=== PATIENT | male | born 1955 | race Caucasian/White ===

== ENCOUNTER 2019-10-23 16:00 | Inpatient (IN) | payer MEDICARE ==
--- OUTSIDE RECORDS SUMMARY | 2019-10-23 16:17 | XMS REPORT | Continuity of Care Document ---
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 Medicine Problems Active Problems Provider Date Chronic obstructive lung disease Sy Mims MD Onset: 08/27/2019 Uncomplicated moderate persistent asthma Sy Mims MD Onset: 09/2019 Allergic rhinitis Sy Mims MD Onset: 08/27/2019 Allergic rhinitis due to pollen Sy Mmis MD Onset: 08/27/2019 Social History Type Date Description Comments Sex Unknown Tobacco Use Start: Unknown Light tobacco smoker (10 or fewer cigarettes/day) Smoking Status Reviewed: 08/27/19 Light tobacco smoker (10 or fewer cigarettes/day) Tobacco Use Start: Unknown Patient is a current smoker, smokes every day Allergies, Adverse Reactions, Alerts Description No Known Drug Allergies Medications Active Medications SIG Qnty Indications Ordering Provider Date Flonase Allergy 2 puffs each 9.900ml J30.1 Sy Merrill 08/27/2019 Relief nostril every MD Prasanna 50mcg/Act day Suspension Zyrtec Allergy one tablet by 30tabs J30.1 Sy Merrill 08/27/2019 10mg mouth every day MD Prasanna Tablets as needed Albuterol Sulfate Mihir Portilloomir HFA MD Abigail 108(90Base) mcg/Act Aerosol Breo Ellipta Unknown 100-25mcg/Inh Aerosol Ibuprofen Lindsey Radomir 800mg MD Abigail Tablets Incruse Ellipta Unknown 62.5mcg/Inh Aerosol Albuterol Sulfate Gurdeep Zamora, RISK MANAGER (2.5mg/3ML) 0.083% Nebulizer Immunizations Description No Information Available Vital Signs Date Vital Result Comment 08/27/2019 11:14am BP Systolic 129 mmHg BP Diastolic 79 mmHg Height 70 inches 5'10" Weight 180.12 lb BMI (Body Mass Index) 25.8 kg/m2 Heart Rate 68 /min Respiratory Rate 19 /min Body Temperature 97.6 F O2 % BldC Oximetry 93 % Results Test Date Facility Test Result H/L Range Note .CBC Auto Diff 08/27/2019 [facility] <pending> [address] [facility] [place] [address] [phone] Laboratory test 08/27/2019 [facility] Total <pending> finding [address] [place] [address] [phone] Order 08/27/2019 [facility] Nitric Oxide <pending> PFT Supplies <pending> PFT With Bronchodilator <pending> Blood Collection via Venipuncture <pending> Skin Test Seasonal and Environmental <pending> Procedures Date Code Description Status 08/27/2019 03641 Nitric Oxide Gas Determination Completed 08/27/2019 42453 Allergy Tests Percutaneous W/ Allergenic Extracts Completed 08/27/2019 82656 Bronchodilation Responsiveness Spirometry Pre/Post Completed Bronchodil Adm Medical Devices Description No Information Available Encounters Description No Information Available Assessments Date Code Description Provider 08/27/2019 J30.1 Allergic rhinitis due to pollen Sy Mims MD 08/27/2019 J30.89 Other allergic rhinitis Sy Mims MD 08/27/2019 J45.40 Moderate persistent asthma, uncomplicated Sy Mims MD 08/27/2019 J44.9 Chronic obstructive pulmonary disease, Sy Mims MD unspecified Plan of Treatment 08/27/2019 - Sy Mims MDJ30.1 Allergic rhinitis due to pollenNew Medication:Flonase Allergy Relief 50 mcg/Act - 2 puffs each nostril every dayZyrtec Allergy 10 mg - one tablet by mouth every day as twslolV09.89 Other allergic xvffhiheN78.40 Moderate persistent asthma, wuncvqhsrzhxsD45.9 Chronic obstructive pulmonary disease, unspecified Functional Status Description No Information Available Mental Status Description No Information Available Referrals Description No Information Available
--- OUTSIDE RECORDS SUMMARY | 2019-10-23 16:17 | XMS REPORT | Continuity of Care Document ---
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 Medicine Problems Active Problems Provider Date Uncomplicated severe persistent asthma Merlene Coe NP Onset: 09/17/2019 Chronic obstructive lung disease Sy Mims MD Onset: 08/27/2019 Uncomplicated moderate persistent asthma Sy Mims MD Onset: 09/2019 Allergic rhinitis Sy Mims MD Onset: 08/27/2019 Allergic rhinitis due to pollen Sy Mims MD Onset: 08/27/2019 Social History Type Date [...] Zyrtec Allergy one tablet by 30tabs J30.1 Merlene Coe NP 08/27/2019 10mg mouth every day Tablets as needed Albuterol Sulfate Mihir Portilloomberyl HFEusebio Hayes MD 108(90Base) mcg/Act Aerosol Breo Ellipta Unknown 100-25mcg/Inh Aerosol Ibuprofen Lindsey Radomberyl 800mg MD Abigail Tablets Incruse Ellipta Unknown 62.5mcg/Inh Aerosol Albuterol Sulfate Gurdeep Zamora, DONOR RECRUITMENT MANAGER (2.5mg/3ML) 0.083% Nebulizer Immunizations Description No Information Available Vital Signs Date Vital Result Comment 09/17/2019 1:09pm BP Systolic 135 mmHg BP Diastolic 88 mmHg Height 70 inches 5'10" Weight 180.00 lb BMI (Body Mass Index) 25.8 kg/m2 Heart Rate 65 /min Respiratory Rate 20 /min O2 % BldC Oximetry 98 % 08/27/2019 11:14am BP Systolic 129 mmHg BP Diastolic 79 mmHg Height 70 inches 5'10" Weight 180.12 lb BMI (Body Mass Index) 25.8 kg/m2 Heart Rate 68 /min Respiratory Rate 19 /min Body Temperature 97.6 F O2 % BldC Oximetry 93 % Results Description No Information Available Procedures Date Code Description Status 08/27/2019 81578 Nitric Oxide Gas Determination Completed 08/27/2019 99680 Allergy Tests Percutaneous W/ Allergenic Extracts Completed 08/27/2019 35835 Bronchodilation Responsiveness Spirometry Pre/Post Completed Bronchodil Adm Medical Devices Description No Information Available Encounters Type Date Location Provider Dx Diagnosis Office Visit 09/17/2019 Greg Coe NP J44.9 Chronic obstructive 1:00p pulmonary disease, unspecified J45.50 Severe persistent asthma, uncomplicated J30.1 Allergic rhinitis due to pollen Office Visit 08/27/2019 11:00a Greg Mims J30.1 Allergic rhinitis due to pollen J30.89 Other allergic rhinitis J45.40 Moderate persistent asthma, uncomplicated J44.9 Chronic obstructive pulmonary disease, unspecified Assessments Date Code Description Provider 09/17/2019 J44.9 Chronic obstructive pulmonary disease, Merlene Coe NP unspecified 09/17/2019 J45.50 Severe persistent asthma, uncomplicated Merlene Coe NP 09/17/2019 J30.1 Allergic rhinitis due to pollen Merlene Coe NP 08/27/2019 J30.1 Allergic rhinitis due to pollen Sy Mims MD 08/27/2019 J30.89 Other allergic rhinitis Sy Mims MD 08/27/2019 J45.40 Moderate persistent asthma, uncomplicated Sy Mims MD 08/27/2019 J44.9 Chronic obstructive pulmonary disease, Sy Mims MD unspecified Plan of Treatment Future Appointment(s):03/17/2020 3:30 pm - Merlene Coe NP at [id number] - Merlene Coe NPJ44.9 Chronic obstructive pulmonary disease, unspecifiedComments:Patient presents for discussion of skin testing for seasonal allergies. All positives were discussed. Avoidance reviewed, and patient is considering immunotherapy. Patient is a good candidate for biologic but he needs to think about it. He would like to start immunotherapy and he will call if he decides to start immunotherapy. He wants to check and see he can have the allergy shots at his PCP.IgE 1584, eosinophil level 170. Follow up in six months. Greater than 50% of the 25-minute visit was spent in discussion of the testing results and treatment options.J45.50 Severe persistent asthma, kdsgrrdodmhqsE88.1 Allergic rhinitis due to pollen Functional Status Description No Information Available Mental Status Description No Information Available Referrals Description No Information Available
--- OUTSIDE RECORDS SUMMARY | 2019-10-23 16:17 | XMS REPORT | Continuity of Care Document ---
:1955 External Reference #:[id number] Author Name RONALD Wilcox (transmitted by agent of provider Sy Mims) Address [address] [facility] 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 [phone] Medicine Problems Active Problems Provider Date Uncomplicated [...] (10 or fewer cigarettes/day) Smoking Status Reviewed: 10/06/19 Light tobacco smoker (10 or fewer cigarettes/day) Tobacco Use Start: Unknown Patient is a current smoker, smokes every day Allergies, Adverse Reactions, Alerts Description No Known Drug Allergies Medications Active Medications SIG Qnty Indications Ordering Provider Date Flonase Allergy 2 puffs each 9.900ml J30.1 Adonayopher Garfield 08/27/2019 Relief nostril every MD Prasanna 50mcg/Act day Suspension Zyrtec Allergy one tablet by 30tabs J30.1 Merlene Coe NP 08/27/2019 10mg mouth every day Tablets as needed Albuterol Sulfate 8.500gm Sy Kaplan. HFA MD Prasanna 108(90Base) mcg/Act Aerosol Breo Ellipta Unknown 100-25mcg/Inh Aerosol Ibuprofen Fide Portillo 800mg MD Abigail Tablets Incruse Ellipta Unknown 62.5mcg/Inh Aerosol Albuterol Sulfate Gurdeep Zamora, JAVA FLEX DEVELOPER (2.5mg/3ML) 0.083% Nebulizer Immunizations Description No Information Available Vital Signs Date Vital Result Comment 10/06/2019 12:56pm BP Systolic 128 mmHg BP Diastolic 78 mmHg Height 70 inches 5'10" Weight 180.00 lb BMI (Body Mass Index) 25.8 kg/m2 Heart Rate 66 /min Respiratory Rate 18 /min O2 % BldC Oximetry 93 % 09/17/2019 1:09pm BP Systolic 135 mmHg BP Diastolic 88 mmHg Height 70 inches 5'10" Weight 180.00 lb BMI (Body Mass Index) 25.8 kg/m2 Heart Rate 65 /min Respiratory Rate 20 /min O2 % BldC Oximetry 98 % Results Description No Information Available Procedures Date Code Description Status 08/27/2019 80420 Nitric Oxide Gas Determination Completed 08/27/2019 27071 Allergy Tests Percutaneous W/ Allergenic Extracts Completed 08/27/2019 93988 Bronchodilation Responsiveness Spirometry Pre/Post Completed Bronchodil Adm Medical Devices Description No Information Available Encounters Type Date Location Provider Dx Diagnosis Office Visit 10/06/2019 1:30p RONALD Zhou J44.9 Chronic obstructive pulmonary disease, unspecified J45.50 Severe persistent asthma, uncomplicated J30.1 Allergic rhinitis due to pollen J30.89 Other allergic rhinitis Office Visit 09/17/2019 1:00p Greg Coe NP J44.9 Chronic obstructive pulmonary disease, unspecified J45.50 Severe persistent asthma, uncomplicated J30.1 Allergic rhinitis due to pollen Office Visit 08/27/2019 11:00a Greg Mims J30.1 Allergic rhinitis due to pollen J30.89 Other allergic rhinitis J45.40 Moderate persistent asthma, uncomplicated J44.9 Chronic obstructive pulmonary disease, unspecified Assessments Date Code Description Provider 10/06/2019 J44.9 Chronic obstructive pulmonary disease, RONALD Wilcox unspecified 10/06/2019 J45.50 Severe persistent asthma, uncomplicated RONALD Wilcox 10/06/2019 J30.1 Allergic rhinitis due to pollen RONALD Wilcox 10/06/2019 J30.89 Other allergic rhinitis RONALD Wilcox 09/17/2019 J44.9 Chronic obstructive pulmonary disease, Merlene Coe, MELECIO unspecified 09/17/2019 J45.50 Severe persistent asthma, uncomplicated Merlene Coe NP 09/17/2019 J30.1 Allergic rhinitis due to pollen Merlene Coe NP 08/27/2019 J30.1 Allergic rhinitis due to pollen Sy Mims MD 08/27/2019 J30.89 Other allergic rhinitis Sy Mims MD 08/27/2019 J45.40 Moderate persistent asthma, uncomplicated Sy Mims MD 08/27/2019 J44.9 Chronic obstructive pulmonary disease, Sy Mims MD unspecified Plan of Treatment Future Appointment(s):10/13/2019 9:20 am - Injection 1 at [facility]/17/2020 3: 30 pm - Merlene Coe MATTE CUTTER at [facility]/06/2019 - RONALD WilcoxJ44.9 Chronic obstructive pulmonary disease, pplyprbfpnpY03.50 Severe persistent asthma, tmtsmzbxfqbjeH12.1 Allergic rhinitis due to pollenComments:Patient's environmental skin test showed 2+ positive to all allergens tested. Patient's PFT shows severe obstruction. Patient to continue Breo for prophylaxis of his lungs and albuterol for breakthrough chest symptoms. Patient to use nebulizer every 4 hours as needed. Patient to continue Flonase for prophylaxis of his nose and Zyrtec for breakthrough nasal symptoms. Patient is interested in starting allergen immunotherapy injections at this time. Saline nasal rinse and HEPA air filter may helpdecrease allergens. Patient strongly encouraged to try to stop smoking cigarettes.Follow up:6 months, PFT and NIOXJ30.89 Other allergic rhinitis Functional Status Description No Information Available Mental Status Description No Information Available Referrals Description No Information Available
--- OUTSIDE RECORDS SUMMARY | 2019-10-23 16:18 | XMS REPORT | Continuity of Care Document ---
:1955 External Reference #:[id number] Author Name Sy Mims MD (transmitted by agent of provider Maryann Flynn) Address [address] [facility] [address] [place] [id number] Care Team Providers Name Role Phone Fide Portillo MD - Internal Care Team Information Tape Sewer [phone] Medicine Problems Description No Information Available Social History Type Date Description Comments Sex Unknown Tobacco Use Start: Unknown Light tobacco smoker (10 or fewer cigarettes/day) Tobacco Use Start: Unknown Patient is a current smoker, smokes every day Allergies, Adverse Reactions, Alerts Description No Known Drug Allergies Medications Active Medications SIG Qnty Indications Ordering Provider Date Albuterol Sulfate HFA Fide Portillo MD 108(90Base) mcg/Act Aerosol Breo Ellipta Unknown 100-25mcg/Inh Aerosol Ibuprofen Fide Portillo MD 800mg Tablets Incruse Ellipta Unknown 62.5mcg/Inh Aerosol Albuterol Sulfate Gurdeep Zamora FNP (2.5mg/3ML) 0.083% Nebulizer Immunizations Description No Information Available Vital Signs Date Vital Result Comment 08/27/2019 11:14am BP Systolic 129 mmHg BP Diastolic 79 mmHg Height 70 inches 5'10" Weight 180.12 lb BMI (Body Mass Index) 25.8 kg/m2 Heart Rate 68 /min Respiratory Rate 19 /min Body Temperature 97.6 F O2 % BldC Oximetry 93 % Results Description No Information Available Procedures Description No Information Available Medical Devices Description No Information Available Encounters Description No Information Available Assessments Description No Information Available Plan of Treatment No Information Available Functional Status Description No Information Available Mental Status Description No Information Available Referrals Description No Information Available
[2019-10-23] MEDS ORDERED: methylPREDNISolone 125 MG* 2 ML VIAL IV ONE (17:52)
[2019-10-23] MEDS ORDERED: Albuterol/Ipratropium NEB.SOL* Albuterol 2.5 MG/Ipratropium 0.5 MG 3 ML INH ONE ×3 (17:52→19:47)
[2019-10-23] MEDS ORDERED: Magnesium Sulfate 2 GM IV* 2 GM/50 ML BAG IVPB ONE (17:52)
--- NOTE | 2019-10-23 18:08 | ED ---
Shortness of Breath - HPI Summary HPI Summary: 64-year-old male presents with shortness of breath for the past week. He states he has history of COPD but it has never been this bad. Has had a productive cough. He admits to occasional chest pain when he coughs. He also bowel pain with coughing. No vomiting. No fevers. Has a history of CHF. He is not diabetic. He states that he normally only uses oxygen occasionally at night but has been having 2 L consistently. He states he does have sleep apnea. he is speaking in short sentences. - History of Current Complaint Chief Complaint: EDShortnessOfBreath Time Seen by Provider: 10/23/19 17:43 - Allergy/Home Medications Allergies/Adverse Reactions: Allergies Allergy/AdvReac Type Severity Reaction Status Date / Time No Known Allergies Allergy Verified 10/23/19 16:07 Home Medications: Home Medications Fluticasone/Vilanterol MDI(NF) [Breo Ellipta MDI 100/25(NF)] 1 puff INH DAILY [History Confirmed 10/23/19] Roflumilast [Daliresp] 250 mg PO DAILY 10/23/19 [History Confirmed 10/23/19] Umeclidinium [place] [Incruse Ellipta] 1 puff INH DAILY 10/23/19 [History Confirmed 10/23/19] PMH/Surg Hx/FS Hx/Imm Hx Endocrine/Hematology History: Reports: Other Endocrine/Hematological Disorders - nontoxic goiter Denies: Hx Diabetes Cardiovascular History: Reports: Hx Hypercholesterolemia, Hx Peripheral Vascular Disease Denies: Hx Congestive Heart Failure, Hx Hypertension, Hx Pacemaker/ICD, Other Cardiovascular Problems/Disorders Respiratory History: Reports: Hx Asthma, Hx Chronic Obstructive Pulmonary Disease (COPD), Hx Seasonal Allergies History: Denies: Hx Renal Disease Musculoskeletal History: Reports: Hx Arthritis, Other Musculoskeletal History - neck pain Sensory History: Reports: Other Sensory Impairments - dentures Denies: Hx Hearing Aid Opthamlomology History: Reports: Other Sensory Impairments - dentures Neurological History: Reports: Other Neuro Impairments/Disorders - pain clinic patient, cervical stenosis Psychiatric History: Reports: Hx Depression Denies: Hx Panic Disorder - Surgical History Surgery Procedure, Year, and Place: HERNIA REPAIR AGE 12 Infectious Disease History: No Infectious Disease History: Denies: Traveled Outside the [place] in Last 30 Days - Family History Known Family History: Positive: Non-Contributory - Social History Alcohol Use: None Substance Use Type: Reports: None Hx Tobacco Use: Yes Smoking Status (MU): Heavy Every Day Tobacco Smoker Type: Cigarettes Amount Used/How Often: 1/2 PPD Have You Smoked in the Last Year: Yes Review of Systems Negative: Fever Negative: Chest Pain Positive: Shortness Of Breath, Cough Negative: Vomiting All Other Systems Reviewed And Are Negative: Yes Physical Exam Triage Information Reviewed: Yes Vital Signs On Initial Exam: Initial Vitals Temp Pulse Resp BP Pulse Ox 97.9 F 103 20 173/98 94 10/23/19 16:02 10/23/19 16:02 10/23/19 16:02 10/23/19 16:02 10/23/19 16:02 Vital Signs Reviewed: Yes Appearance: Positive: Well-Appearing Skin: Positive: Warm, Dry Head/Face: Positive: Normal Head/Face Inspection Eyes: Positive: Normal, Conjunctiva Clear ENT: Positive: Pharynx normal Respiratory/Lung Sounds: Positive: Decreased Breath Sounds, Wheezes Cardiovascular: Positive: Normal, RRR Abdomen Description: Positive: Nontender, Soft Bowel Sounds: Positive: Present Musculoskeletal: Positive: Normal Neurological: Positive: Normal Psychiatric: Positive: Normal Procedures - Sedation Patient Received Moderate/Deep Sedation with Procedure: No Diagnostics - Vital Signs Vital Signs Temp Pulse Resp BP Pulse Ox 10/23/19 18:01 110 22 95 10/23/19 16:02 97.9 F 103 20 173/98 94 - Laboratory Result Diagrams: 10/24/19 05:50 10/24/19 05:50 Lab Statement: Any lab studies that have been ordered have been reviewed, and results considered in the medical decision making process. - Radiology chest Radiology Interpretation Completed By: ED Physician Summary of Radiographic Findings: possible infilitrate - CT cta CT Interpretation Completed By: Radiologist Summary of CT Findings: IMPRESSION: No evidence of PE. Scattered foci of infiltrate in the upper lobes suggestive of pneumonitis. - EKG No standard instances Cardiac Rate: Tachycardia EKG Rhythm: Sinus Tachycardia Summary of EKG Findings: sinus tachycardia Re-Evaluation - Re-Evaluation First Eval Re-Evaluation Time: 19:23 Change: Unchanged Comment: still wheezing and SOB Course/Dx - Course Course Of Treatment: 64-year-old male presents with shortness of breath for the past week. He states he has history of COPD but it has never been this bad. Has had a productive cough. He admits to occasional chest pain when he coughs. He also bowel pain with coughing. No vomiting. No fevers. Has a history of CHF. He is not diabetic. He states that he normally only uses oxygen occasionally at night but has been having 2 L consistently. He states he does have sleep apnea. On exam decreased breath sounds with wheezing heard. chest xray shows possible infilitrate. wbc 12. crp elevated. bnp is normal. troponin .03. d-dimer elevated. gave solumedrol, steriod and nebulier and patient continues to be sob and has wheezes on exam. CTA shows possible pneumonitis so will treat with rocephin and azithromycin. patient continues to be sob and speaks in short sentences so will admit. dr swenson agrees to admit. - Diagnoses Differential Diagnosis/HQI/PQRI: Positive: Bronchitis, COPD Exacerbation, Pneumonia Provider Diagnoses: COPD (chronic obstructive pulmonary disease), Pneumonia Discharge ED - Sign-Out/Discharge Documenting (check all that apply): Patient Departure - Discharge Plan Condition: Stable Disposition: ADMITTED TO [facility] - Billing Disposition and Condition Condition: STABLE Disposition: Admitted to [facility] - Attestation Statements Provider Attestation: I was available for consultation for this patient. I did not evaluate the patient, or participate in any medical decision making or disposition decisions unless I am specifically named in the chart as having consulted on the patient. If I have consulted on the patient, please see my own ED note on the patient encounter. Brady Nixon MD
[2019-10-23 18:10] LABS: ABS Basophils 0.1 10^3/ul (0-0.2); ABS Eosinophils 0.1 10^3/ul (0-0.6); ABS Lymphocytes 1.4 10^3/ul (1.0-4.8); ABS Monocytes 1.5 10^3/ul (0-0.8); ABS Neutrophils 9.8 10^3/ul (1.5-7.7); Eosinophil % 0.6 %; Hematocrit 38 % (42-52); Hemoglobin 13.4 g/dL (14.0-18.0); Lymphocyte % 11.3 %; Mean Corpuscular HGB Conc 35 g/dL (31-36); Mean Corpuscular Hemoglobin 33 pg (27-31); Mean Corpuscular Volume 94 fL (80-94); Mean Platelet Volume 7.4 fL (7.4-10.4); Platelet Count 285 10^3/uL (150-450); Red Cell Distribution Width 13 % (10-15); White Blood Count 12.9 10^3/uL (3.5-10.8)
[2019-10-23 18:30] LABS: ALT 41 U/L (7-52); AST 32 U/L (13-39); Albumin 3.9 g/dL (3.2-5.2); Albumin/Globulin Ratio 1.3 (1-3); Alkaline Phosphatase 78 U/L (34-104); Anion Gap 8 mmol/L (2-11); BUN/Creatinine Ratio 16.4 (8-20); Blood Urea Nitrogen 11 mg/dL (6-24); C Reactive Protein 220.72 mg/L (<8.01); CO2 Carbon Dioxide 32 mmol/L (22-32); Calcium 9.2 mg/dL (8.6-10.3); Chloride 100 mmol/L (101-111); EGFR African American 145.4 (>60); EGFR Non-African American 120.2 (>60); Globulin 2.9 g/dL (2-4); Glucose 121 mg/dL (70-100); Magnesium 1.8 mg/dL (1.9-2.7); Potassium 3.6 mmol/L (3.5-5.0); Sodium 140 mmol/L (135-145); Total Protein 6.8 g/dL (6.4-8.9)
[2019-10-23 18:36] LABS: Troponin I 0.03 ng/mL (<0.03)
[2019-10-23] MEDS ORDERED: Iohexol 350* (CONTRAST) 500 ML MDV IV ONE (18:54)
[2019-10-23] MEDS ORDERED: Acetaminophen TAB* 325 MG PO ONE (19:46)
[2019-10-23] MEDS ORDERED: cefTRIAXone(*) 1 GM in NS 0.9% 50 ML* 50 ML IVPB ONE (20:25)
[2019-10-23] MEDS ORDERED: Azithromycin 500 mg/250 ml NS 500 MG/250 ML BAG IVPB ONE (20:25)
[2019-10-23 21:12] LABS: Influenza A Molecular NEGATIVE (Negative); Influenza B Molecular NEGATIVE (Negative)
--- NOTE | 2019-10-23 23:48 | HP ---
History of Present Illness - History of Present Illness Reason for Visit: shortness of breath History of Present Illness: 64 yo male with medical history of COPD came in with shortness of breath. His symptoms started the weekend after thanksgiving and has been getting worse. Started with a productive cough then more dyspnea on exertion with chills and decreased energy. His shortness of breath was so bad he came in to the hospital today. He hasnt been in a hospital in years. Pt is an active smoker and smokes .5 PPD. He works in [email or web address] and does not wear protective mask. No recent travel. He wears oxygen at night only. - Past Medical History Pulmonary: Bronchitis, COPD - Past Family History Family History: CAD - Past Social History Smoke: <1 pack per day Alcohol: Rare Drugs: None Lives: Alone Review of Systems - Measurements Intake and Output: Intake and Output Last 24 Hours 10/21/19 10/22/19 10/23/19 10/24/19 06:59 06:59 06:59 06:59 Intake Total 100 Balance 100 Weight 180 lb Intake: IV Fluids 100 - Review of Systems Constitutional Symptoms: Positive: Fever Negative: Weight Gain, Weight Loss, Weakness, Fatigue, Night Sweats, Unexplained Falls, Other Dermatology: Negative: Normal, Rash, Skin Lesions, Cancer, Skin Lumps, Other HEENT: Negative: Normal, Change in Hearing, Vertigo, Dental Problems, Tinnitus, Sinus Problem, Other Thyroid: Negative: Normal, Goiter, Thyroid Nodule, Cold Intolerance, Heat Intolerance , Sweatiness, Tremor, Frequent Defecation, Constipation, Palpitations, Primary Hypothyroidism, Primary Hyperthyroidism, Weight Loss, Weight Gain, Change in Skin/Hair, Change in Menstruation, Radiation Exposure, Other Pulmonary: Positive: Cough, Sputum, Wheezing, Respiratory Distress, Shortness of Breath Cardiology: Negative: Normal, Chest Pain, Shortness of Breath, Palpitations, Swelling of Ankles, Peripheral Vascular Dis, Edema, Faintness, Syncope, Claudication, Proximal NocturnalDyspnea, Orthopnoea, Other Gastroenterology: Negative: Normal, Abdominal Pain, Nausea, Vomiting, Anorexia, Indigestion, Difficulty Swallowing, Heartburn, Constipation, Diarrhea, Blood in Stools, Change in Bowel Habits, Haematemesis, Melena, Other Musculoskeletal: Negative: Joint Pain, Joint Stiffness, Arthritis, Osteoporosis, Low Back Pain , Sciatica, Joint Deformities, Kyphoscoliosis, Other Endocrinology: Negative: Normal, Thyroid Problems, Adrenal Problems, Gonadal Problems, Family Hx Endocrine Disorders, Obesity, Diabetes Mellitus, Hyperglycemia, Hx Hypoglycemia, Diabetic Foot Ulcers, Calluses, Hirsutism, Menstrual Abnormalities , Polydipsia, Polyuria, Gonadal Problems, Gynecomastia, Pituitary disease, Other Hematologic/Lymphatic: Negative: Anemia, Easy Bruising, Hx Leukemia, Hx Lymphoma, Use of Anticoagulant, Use of Antiplatelet Drugs, Other Neurology: Negative: Normal, Headache, Migraines, Change in Vision, Diplopia, Dizziness , Change in Balancing, Change in Coordination, Change in Memory, Change in Speech, Change in Sphincter Function, Change in Walking, Numbness\Paresthesiae, Unexplained Weakness, Hx of Stroke\TIA, Hx of Seizures, Other Psychiatry: Negative: Normal, Depression, Anxiety, Depressed Mood, Anhedonia, Sexual Dysfunction, Weight Change, Guilt Feelings, Tearfulness, Unusual Fatigue, Unusual Anxiety, Suicidal Ideation, Hypomania, Eating Disorders, Other Objective Active Medications: Albuterol (Ventolin 2.5 Mg/3 Ml Neb.Deandra*) 2.5 mg INH Q4H PRN PRN Reason: SOB/WHEEZING Sodium Chloride (Ns 0.9% 1000 Ml) 1,000 mls @ 125 mls/hr IV Q8H [facility] Azithromycin 250 mg/ Sodium (Chloride) 250 mls @ 250 mls/hr IVPB Q24H [facility] Ceftriaxone Sodium 1 gm/ (Sodium Chloride) 50 mls @ 100 mls/hr IVPB Q24H [facility] Mometasone Furoate/Formoterol Fumar (Dulera 100/5 Mdi*) 2 puff INH BID [facility] Non-Formulary Medication (Roflumilast [Daliresp]) 250 mg PO DAILY [facility] Prednisone (Deltasone Tab*) 40 mg PO DAILY [facility] Vital Signs - 8 hr 10/23/19 10/23/19 10/23/19 16:02 17:39 17:40 Temperature 97.9 F Pulse Rate 103 117 124 Respiratory 20 Rate Blood Pressure 173/98 174/105 (mmHg) O2 Sat by Pulse 94 92 93 Oximetry 10/23/19 10/23/19 10/23/19 18:01 18:14 18:39 Temperature Pulse Rate 110 113 103 Respiratory 22 Rate Blood Pressure 178/106 (mmHg) O2 Sat by Pulse 95 93 93 Oximetry 10/23/19 10/23/19 10/23/19 19:00 20:05 20:06 Temperature 98.9 F Pulse Rate 111 Respiratory 31 Rate Blood Pressure 153/91 (mmHg) O2 Sat by Pulse 92 Oximetry 10/23/19 10/23/19 10/23/19 20:09 20:39 21:00 Temperature Pulse Rate 105 104 117 Respiratory Rate Blood Pressure 158/89 154/96 (mmHg) O2 Sat by Pulse 93 96 89 Oximetry 10/23/19 21:09 Temperature Pulse Rate 101 Respiratory Rate Blood Pressure 130/103 (mmHg) O2 Sat by Pulse 95 Oximetry Oxygen Devices in Use Now: Nasal Cannula Appearance: sitting on the side of bed, head down, he breathes better that way Eyes: No Scleral Icterus, PERRLA Ears/Nose/Mouth/Throat: Mucous Membranes Moist Neck: NL Appearance and Movements; NL JVP, Trachea Midline Respiratory: - - mild respiratory distress, scattered wheezes Cardiovascular: NL Sounds; No Murmurs; No JVD Abdominal: NL Sounds; No Tenderness; No Distention Lymphatic: No Cervical Adenopathy Skin: No Rash or Ulcers Neurological: Alert and Oriented x 3, NL Sensation Result Diagrams: 10/23/19 18:02 10/23/19 18:02 Assess/Plan/Problems-Billing Assessment: - Patient Problems (1) COPD exacerbation Current Visit: Yes Status: Acute Code(s): J44.1 - CHRONIC OBSTRUCTIVE PULMONARY DISEASE W (ACUTE) EXACERBATION SNOMED Code(s): 611550008 Comment: shortness of breath at rest, productive cough, chills, wheezing On 2LNC in the ER. Only wears oxygen at night at home CTA r/o PE but shows patchy infiltrates in upper lung [place] B/L concerning for pneumonitis? he certainly has risk factors for ILD and might need further evaluation Will treat for COPD exacerbation with devika/cef and steroids duonebs prn (2) Full code status Current Visit: Yes Status: Acute Code(s): Z78.9 - OTHER SPECIFIED HEALTH STATUS SNOMED Code(s): 673738113 Comment: Son Domenico Francisco to contact in case he becomes incapacited (3) DVT prophylaxis Current Visit: Yes Status: Acute Code(s): Z29.9 - ENCOUNTER FOR PROPHYLACTIC MEASURES, UNSPECIFIED SNOMED Code(s): 728933547 Comment: heparin sc (4) Smoking 1/2 pack a day or less Current Visit: Yes Status: Acute Code(s): F17.210 - NICOTINE DEPENDENCE, CIGARETTES, UNCOMPLICATED SNOMED Code(s): 936208689
[2019-10-24] MEDS: NS 0.9% 1000 ML** 1,000 ML IV SCH ×2 (00:39→10:15)
[2019-10-24] MEDS: Albuterol 2.5 MG/3 ML NEB.SOL* (0.083%) INH PRN ×2 (06:15→13:39)
[2019-10-24 06:19] LABS: ABS Lymphocytes 0.9 10^3/ul (1.0-4.8); ABS Monocytes 0.2 10^3/ul (0-0.8); ABS Neutrophils 8.6 10^3/ul (1.5-7.7); Hematocrit 36 % (42-52); Hemoglobin 12.4 g/dL (14.0-18.0); Lymphocyte % 9.2 %; Mean Corpuscular HGB Conc 35 g/dL (31-36); Mean Corpuscular Hemoglobin 32 pg (27-31); Mean Corpuscular Volume 94 fL (80-94); Mean Platelet Volume 7.5 fL (7.4-10.4); Platelet Count 274 10^3/uL (150-450); Red Blood Count 3.81 10^6 /uL (4.18-5.48); Red Cell Distribution Width 13 % (10-15); White Blood Count 9.8 10^3/uL (3.5-10.8)
[2019-10-24 06:37] LABS: BUN/Creatinine Ratio 22.4 (8-20); Calcium 8.5 mg/dL (8.6-10.3); EGFR African American 171.8 (>60); Potassium 3.6 mmol/L (3.5-5.0)
[2019-10-24 06:39] LABS: Troponin I 0.01 ng/mL (<0.03)
--- NOTE | 2019-10-24 07:42 | PN ---
Subjective Date of Service: 10/24/19 Interval History: Mr. Francisco reports that he is feeling much better than on arrival. He notes that he has had frequent COPD exacerbations, last prednisone about a month ago. This current exacerbation started about a week ago. He came to the hospital yesterday at the behest of his neighbor who noted that he "looked bad." He continues to have a cough and wheezing. He is short of breath with walking in his room. He denies chest pain. He is tolerating oral intake well. Objective Active Medications: Albuterol (Ventolin 2.5 Mg/3 Ml Neb.Deandra*) 2.5 mg INH Q4H PRN Sodium Chloride (Ns 0.9% 1000 Ml) 1,000 mls @ 125 mls/hr IV Q8H [facility] Azithromycin 250 mg/ Sodium (Chloride) 250 mls @ 250 mls/hr IVPB Q24H [facility] Ceftriaxone Sodium 1 gm/ (Sodium Chloride) 50 mls @ 100 mls/hr IVPB Q24H [facility] Influenza Virus Vaccine (Fluarix Quad 6295-2737 Syr) 0.5 ml IM .ONCE ONE Mometasone Furoate/Formoterol Fumar (Dulera 100/5 Mdi*) 2 puff INH BID [facility] Prednisone (Deltasone Tab*) 40 mg PO DAILY [facility] Roflumilast (Daliresp (Nf)) 250 mcg PO DAILY [facility] Vital Signs: Temp Pulse Resp BP Pulse Ox 0 F 0 0 0/0 0 10/23/19 23:50 10/23/19 23:50 10/23/19 23:50 10/23/19 23:50 10/23/19 23:50 Oxygen Devices in Use Now: Nasal Cannula Appearance: Male sitting on edge of bed in NAD Eyes: No Scleral Icterus Ears/Nose/Mouth/Throat: Mucous Membranes Moist Neck: Trachea Midline Respiratory: Symmetrical Chest Expansion and Respiratory Effort, - - Wheezing noted in bases primarily, good aeration, no accessory muscle use, able to speak in complete sentences Cardiovascular: NL Sounds; No Murmurs; No JVD Abdominal: NL Sounds; No Tenderness; No Distention Extremities: No Edema Skin: No Rash or Ulcers Neurological: Alert and Oriented x 3, NL Muscle Strength and Tone Nutrition: Taking PO's Result Diagrams: 10/24/19 05:50 10/24/19 05:50 Assess/Plan/Problems-Billing Assessment: Mr. Francisco is a 64 yo M with a PMH of COPD who was admitted on 10/23/19 with COPD exacerbation and acute hypoxic respiratory failure. - Patient Problems (1) COPD exacerbation Comment: - With acute hypoxic respiratory failure - Requiring 2L NC on arrival, normally wears O2 at night only - Shortness of breath at rest, productive cough, chills, wheezing - CTA r/o PE but shows patchy infiltrates in upper lung [place] B/L concerning for pneumonitis?, recommend repeat CT in 6 weeks to ensure resolution - Continue azithromycin and ceftriaxone with prednisone and duonebs prn (2) DVT prophylaxis Comment: - Heparin sc (3) Full code status Comment: Status and Disposition: Inpatient. Anticipate return to home when medically stable.
[2019-10-24] MEDS: Mometasone/Formoter 100/5 MDI INH SCH ×2 (08:13→21:29)
[2019-10-24] MEDS ORDERED: Influenza VAC *QUAD* 2019-20* 0.5 ML SYRINGE IM ONE (09:00)
[2019-10-24] MEDS: CMC:Roflumilast (NF) 500 MCG TAB PO SCH (09:44)
[2019-10-24] MEDS: cefTRIAXone(*) 1 GM in NS 0.9% 50 ML* 50 ML IVPB SCH (19:46)
[2019-10-24] MEDS: Azithromycin IV(*) 250 MG in NS 0.9% 250 ML* 250 ML IVPB SCH (20:42)
[2019-10-24] MEDS: Acetaminophen TAB* 325 MG PO PRN (20:50)
[2019-10-25] MEDS: Acetaminophen TAB* 325 MG PO PRN ×2 (07:20→20:19)
[2019-10-25] MEDS: Mometasone/Formoter 100/5 MDI INH SCH ×3 (08:30→20:49)
[2019-10-25] MEDS: Albuterol 2.5 MG/3 ML NEB.SOL* (0.083%) INH PRN ×2 (08:33→14:41)
[2019-10-25] MEDS: CMC:Roflumilast (NF) 500 MCG TAB PO SCH (11:24)
--- NOTE | 2019-10-25 15:01 | PN ---
Subjective Date of Service: 10/25/19 Interval History: Pt is feeling better today. He has not done any walking at the time of my visit. He does tell nursing that he has no way home tonight and has no way to get groceries or his wood chopped until tomorrow. Objective Active Medications: Acetaminophen (Tylenol Tab*) 650 mg PO Q6H PRN PRN Reason: PAIN - MILD Last Admin: 10/25/19 07:20 Dose: 650 mg Albuterol (Ventolin 2.5 Mg/3 Ml Neb.Deandra*) 2.5 mg INH Q4H PRN PRN Reason: SOB/WHEEZING Last Admin: 10/25/19 14:41 Dose: 2.5 mg Azithromycin 250 mg/ Sodium (Chloride) 250 mls @ 250 mls/hr IVPB Q24H [facility] Last Admin: 10/24/19 20:42 Dose: 250 mls/hr Ceftriaxone Sodium 1 gm/ (Sodium Chloride) 50 mls @ 100 mls/hr IVPB Q24H [facility] Last Admin: 10/24/19 19:46 Dose: 100 mls/hr Mometasone Furoate/Formoterol Fumar (Dulera 100/5 Mdi*) 2 puff INH BID [facility] Last Admin: 10/25/19 08:30 Dose: 2 puff Prednisone (Deltasone Tab*) 40 mg PO DAILY [facility] Last Admin: 10/25/19 07:20 Dose: 40 mg Roflumilast (Daliresp (Nf)) 250 mcg PO DAILY [facility] Last Admin: 10/25/19 11:24 Dose: 250 mcg Vital Signs - 8 hr 10/25/19 10/25/19 10/25/19 07:21 07:45 08:36 Temperature 98 F Pulse Rate 79 80 Respiratory 20 20 16 Rate Blood Pressure 132/78 (mmHg) O2 Sat by Pulse 91 92 Oximetry 10/25/19 10/25/19 10:48 14:42 Temperature 98.8 F Pulse Rate 65 80 Respiratory 20 16 Rate Blood Pressure 132/77 (mmHg) O2 Sat by Pulse 98 93 Oximetry Oxygen Devices in Use Now: None Appearance: Middle aged male sitting up on the edge of the bed, NAD Eyes: No Scleral Icterus Ears/Nose/Mouth/Throat: Mucous Membranes Moist Respiratory: - - Breath sounds are diminshed throughout, worse at the bases with few wheezes bilaterally Cardiovascular: NL Sounds; No Murmurs; No JVD, RRR Abdominal: NL Sounds; No Tenderness; No Distention Extremities: No Clubbing, Cyanosis Skin: No Nodules or Sclerosis Neurological: Alert and Oriented x 3 Result Diagrams: 10/24/19 05:50 10/24/19 05:50 Microbiology and Other Data: Microbiology 10/24/19 00:30 Aerobic Blood Culture - Preliminary Blood Venous No Growth Day 1 Anaerobic Blood Culture - Preliminary No Growth Day 1 10/24/19 00:22 Aerobic Blood Culture - Preliminary Blood Venous No Growth Day 1 Anaerobic Blood Culture - Preliminary No Growth Day 1 Assess/Plan/Problems-Billing A Mr. Francisco is a 64 yo M with a PMH of COPD who was admitted on 10/23/19 with COPD exacerbation and acute hypoxic respiratory failure. - Patient Problems (1) COPD exacerbation Current Visit: Yes Status: Acute Code(s): J44.1 - CHRONIC OBSTRUCTIVE PULMONARY DISEASE W (ACUTE) EXACERBATION SNOMED Code(s): 561698235 Comment: No saturating in low 90's at rest on RA. Still with tight breath sounds and wheezing bilaterally. He is generally feeling better however. Will plan on d/c home tomorrow to complete a full course of vantin and azithromycin. Prednisone taper will also occur. Continue home inhaler/neb regimen. Will need to follow up with Dr. Alonzo (last saw her 12/2018) and will need repeat CT chest to ensure resolution of infiltrate seen this admission. (2) Smoking 1/2 pack a day or less Current Visit: Yes Status: Acute Code(s): F17.210 - NICOTINE DEPENDENCE, CIGARETTES, UNCOMPLICATED SNOMED Code(s): 486407150 Comment: Encourage smoking cessation. (3) DVT prophylaxis Current Visit: Yes Status: Acute Code(s): Z29.9 - ENCOUNTER FOR PROPHYLACTIC MEASURES, UNSPECIFIED SNOMED Code(s): 820083237 Comment: SQ heparin (4) Full code status Current Visit: Yes Status: Acute Code(s): Z78.9 - OTHER SPECIFIED HEALTH STATUS SNOMED Code(s): 644083356 Comment: Status and Disposition: Inpatient. Anticipate return to home when medically stable.
[2019-10-25] MEDS: cefTRIAXone(*) 1 GM in NS 0.9% 50 ML* 50 ML IVPB SCH (20:14)
[2019-10-25] MEDS: Azithromycin IV(*) 250 MG in NS 0.9% 250 ML* 250 ML IVPB SCH (21:06)
[2019-10-26] MEDS: Acetaminophen TAB* 325 MG PO PRN (06:35)
[2019-10-26 07:56] VITALS: BP 158/84
[2019-10-26] MEDS: CMC:Roflumilast (NF) 500 MCG TAB PO SCH (08:16)
[2019-10-26] MEDS: Albuterol 2.5 MG/3 ML NEB.SOL* (0.083%) INH PRN (08:48)
[2019-10-26] MEDS: Mometasone/Formoter 100/5 MDI INH SCH (08:48)
--- NOTE | 2019-10-26 22:00 | DS ---
CC: Dr. Fide Portillo; Dr. Tanya Alonzo * DISCHARGE SUMMARY: DATE OF ADMISSION: 10/23/19 DATE OF DISCHARGE: 10/26/19 PRIMARY CARE PROVIDER: Dr. Fide Portillo. ATTENDING PHYSICIAN: Dr. Kacie Luis.* (DICTATED BY NAM MEDINA NP) PRIMARY DIAGNOSIS: Chronic obstructive pulmonary disease exacerbation. SECONDARY DIAGNOSIS: Tobacco dependence. STUDIES WHILE IN THE HOSPITAL: 1. EKG on 10/23/19 shows sinus tachycardia with a rate of 104, QTc 452. 2. Chest x-ray on 10/23/19 reads as hyperinflated lungs with no new focal airspace opacification. Mild interstitial pulmonary edema is possible. 3. Chest thorax CTA on 10/23/19 reads as no evidence of PE. Scattered foci of infiltrate in the upper lobes suggestive of pneumonitis. HISTORY OF PRESENT ILLNESS AND HOSPITAL COURSE: Mr. Francisco is a 64-year-old male with past medical history of COPD, who presented to the emergency room on 10/23/19, with complaints of shortness of breath. Please see the history and physical by Dr. Trejo for complete summary of the events leading up to this hospitalization. In short, the patient reported shortness of breath beginning a few days after Thanksgiving and progressively worsening. He did develop a productive cough and so presented to the emergency room. In the emergency room , he had imaging as noted above. He had labs, which did show a mild leukocytosis with a white blood count of 12.9 and elevated CRP at 220. Because of the concern for COPD exacerbation, he was admitted by the hospitalist service. The patient was placed on a small amount of oxygen though likely did not actually require the oxygen as he was saturating in the mid 90s on 2 L. He was started on azithromycin and ceftriaxone as well as prednisone. The patient showed gradual improvement in symptoms and as of today reports feeling remarkably better. He does note some shortness of breath at rest and with exertion, but notes that this is back to his baseline. Cough has decreased. He has been now ambulating independently. On exam, he is alert and oriented x4. He has no focal neurological deficits. Heart has a regular rate and rhythm without murmurs, rubs, or gallops. Lungs are clear, but diminished to auscultation. There are no rhonchi or rubs. There are faint scattered expiratory wheezes. There is no edema. Physical exam is otherwise benign. Mr. Francisco is stable for discharge today. Most recent vitals are as follows: Temp 97.3, heart rate 73, respiratory rate 16, oxygen saturation 92% on room air , blood pressure 158/84. DISCHARGE MEDICATIONS: New medications: 1. Azithromycin 250 mg p.o. daily x3 days 2. Cefpodoxime 200 mg p.o. b.i.d. x5 days. 3. Prednisone taper (40 mg x3 days, then 30 mg x3 days, then 20 mg x3 days, then 10 mg x3 days). Continued medications: 1. Albuterol 1 neb q.4 hours p.r.n. shortness of breath or wheezing. 2. Albuterol MDI 2 puffs q.4 hours p.r.n. shortness of breath or wheezing. 3. Breo-Ellipta 100/25, 1 puff daily. 4. Ibuprofen 800 mg p.o. daily p.r.n. pain. 5. Daliresp 250 mcg p.o. daily. 6. Incruse Ellipta 62.5 mcg 1 puff daily. DISCHARGE PLAN: Mr. Francisco will be discharged home. Activity will be as tolerated. Diet will be regular as tolerated. Medications as noted above. The patient has been prescribed 3 days of azithromycin to complete a total of 5 days of azithromycin and 5 days of cefpodoxime to complete a total of 7 days of cephalosporin for his COPD exacerbation. He has been prescribed a prednisone taper, which is familiar with as he has completed these in the past and continue his other usual medications as noted above. He has been advised that he will need a repeat CT scan in approximately 6 weeks to ensure resolution of the suspected pneumonitis seen on CT. He will also need to follow up closely with his advertising project manager, Dr. Alonzo, and it has been recommended that he schedule a followup appointment with her in the next 1 to 2 weeks. He should see his primary care provider in the next 4 to 7 days. He has been advised to return to the emergency room or nearest hospital for any worsening of symptoms, shortness of breath, lightheadedness, dizziness, chest discomfort, high fevers, chills, night sweats, loss of consciousness, or any other worrisome signs or symptoms. DISCHARGE CONDITION: Stable. DISCHARGE DISPOSITION: Home. This is a summarized report of a complex medical history and hospital stay. For further details, please see the entire medical record. TIME SPENT: Approximately 40 minutes was spent on this discharge. NAM [facility] [id number]/[facility] #: [id number] SASCHA
== END 2019-10-26 11:49 | disposition home or self-care (01) | DRG 190 ==
LOC: ED 16:00 → MEDTELE 21:04
PROVIDERS: ADMIT Student in an Organized Health Care Education/Training Program; ATTEND Internal Medicine
DX: J44.1 Chronic obstructive pulmonary disease with (acute) exacerbation (principal); J18.9 Pneumonia, unspecified organism; J96.01 Acute respiratory failure with hypoxia; J44.0 Chronic obstructive pulmonary disease with (acute) lower respiratory infection; F17.210 Nicotine dependence, cigarettes, uncomplicated; Z99.81 Dependence on supplemental oxygen; Z82.49 Family history of ischemic heart disease and other diseases of the circulatory system; Z79.51 Long term (current) use of inhaled steroids; Z79.52 Long term (current) use of systemic steroids; Z79.899 Other long term (current) drug therapy
CPT/HCPCS: 36415; 71046; 71275; 80048; 80053; 83605; 83735; 83880; 84484; 85025; 85379; 86140; 87040; 90686; 93005; 94640; 99284; A9270-GY; J0456; J0696; J2930; J3475; J7512; Q9967